=== PATIENT | female | born 1950 | race Caucasian/White ===

== ENCOUNTER 2018-08-16 17:46 | Emergency (ER) | payer MEDICARE, OTHER ==
--- NOTE | 2018-08-16 18:19 | EDM.PDOC ---
ED HPI GENERAL MEDICAL PROBLEM - General Chief Complaint: Cardiovascular Problem Stated Complaint: Hypertension Time Seen by Provider: 08/16/18 18:00 Source of Information: Reports: Patient History Limitations: Reports: No Limitations - History of Present Illness INITIAL COMMENTS - FREE TEXT/NARRATIVE: Patient is a 68-year-old female was home today took her medications as she normally does but noted that her blood pressure was elevated but she called clinic in the clinic and told to come in for evaluation this time her blood pressure was elevated we went ahead and evaluated her and decided to treat her Onset: Today Duration: Hour(s):, Constant Location: Reports: Generalized Quality: Reports: Ache Severity: Mild Improves with: Reports: Medication Worsens with: Reports: None Context: Reports: Other (Hypertension) Treatments 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 Medication(s) - Related Data Allergies Allergy/AdvReac Type Severity Reaction Status Date / Time Penicillins Allergy Intermediate Hives Verified 08/16/18 18:33 Home Meds: Home Meds Cholecalciferol (Vitamin D3) [Vitamin D3] 1,000 units PO DAILY 07/03/14 [History ] Modafinil [Provigil] 200 mg PO DAILY 07/03/14 [History] Gabapentin [Neurontin] 300 mg PO BID@08,20 03/05/15 [History] Levothyroxine [Synthroid] 50 mcg PO BEDTIME 03/05/15 [History] Multivitamins [Tab-A-Mckay] 1 tab PO DAILY 03/05/15 [History] Valsartan [Diovan] 40 mg PO DAILY 03/05/15 [History] Ibuprofen 200 mg PO Q6HR PRN #100 tablet 03/06/15 [Rx] Albuterol [Ventolin HFA] 2 puff INH Q6H PRN 08/16/18 [History] Alendronate Sodium [Fosamax] 70 mg PO WEEKLY 08/16/18 [History] Cetirizine [ZyrTEC] 10 mg PO DAILY 08/16/18 [History] Fenofibrate Nanocrystallized [Tricor] 145 mg PO DAILY 08/16/18 [History] L Gasseri/B Bifidum/B Longum [[employer] Capsule] 1 each PO DAILY [History] LORazepam 0.5 mg PO Q6HR PRN 08/16/18 [History] Pantoprazole Sodium [Protonix] 40 mg PO DAILY 08/16/18 [History] QUEtiapine [SEROquel] 200 mg PO BEDTIME 08/16/18 [History] Past Medical History HEENT History: Reports: Impaired Vision Cardiovascular History: Reports: Hypertension Respiratory History: Reports: COPD, Other (See Below) Other Respiratory History: Valley lung Gastrointestinal History: Reports: Colon Polyp, Other (See Below) Other Gastrointestinal History: Bleeding hemorrhoids Genitourinary History: Reports: None Neurological History: Reports: MS, Seizure Psychiatric History: Reports: Depression Endocrine/Metabolic History: Reports: Hypothyroidism Dermatologic History: Reports: None - Infectious Disease History Infectious Disease History: Reports: Chicken Pox - Past Surgical History HEENT Surgical History: Reports: None Cardiovascular Surgical History: Reports: None Respiratory Surgical History: Reports: None GI Surgical History: Reports: None Female Surgical History: Reports: Hysterectomy Neurological Surgical History: Reports: None ED ROS GENERAL - Review of Systems Review Of Systems: See Below Constitutional: Reports: No Symptoms HEENT: Reports: No Symptoms Respiratory: Reports: Shortness of Breath Cardiovascular: Reports: Blood Pressure Problem Endocrine: Reports: No Symptoms GI/Abdominal: Reports: No Symptoms : Reports: No Symptoms Musculoskeletal: Reports: No Symptoms Skin: Reports: No Symptoms ED EXAM, GENERAL - Physical Exam Exam: See Below Exam Limited By: No Limitations General Appearance: Alert, WD/WN, No Apparent Distress Ears: Normal External Exam, Normal Canal, Hearing Grossly Normal, Normal TMs Nose: Normal Inspection Throat/Mouth: Normal Inspection Head: Atraumatic, Normocephalic Neck: Normal Inspection, Supple, Non-Tender, Full Range of Motion Respiratory/Chest: Chest Non-Tender, Decreased Breath Sounds Cardiovascular: Normal Peripheral Pulses, Regular Rate, Rhythm, No Edema, No Gallop, No JVD, No Murmur, No Rub GI/Abdominal: Normal Bowel Sounds, Soft, Non-Tender, No Organomegaly, No Distention, No Abnormal Bruit, No Mass (Female) Exam: Normal External Exam, Normal Speculum Exam, Normal Bimanual Exam Rectal (Female) Exam: Deferred Back Exam: Decreased Range of Motion Extremities: Normal Inspection, Normal Range of Motion, Non-Tender, Normal Capillary Refill, No Pedal Edema Neurological: Alert, Oriented, CN II-XII Intact, Normal Cognition, Normal Gait, Normal Reflexes, No Motor/Sensory Deficits Psychiatric: Normal Affect, Normal Mood, Anxious Skin Exam: Warm, Dry, Intact, Normal Color, No Rash Course - Vital Signs Last Recorded V/S: Last Vital Signs Temp 98.4 F 08/16/18 17:50 Pulse 86 08/16/18 17:50 Resp 16 08/16/18 17:50 BP 157/103 H 08/16/18 18:16 Pulse Ox 93 L 08/16/18 17:50 - Orders/Labs/Meds Meds: Medications Discontinued Medications Generic Name Dose Route Start Last Admin Trade Name Ole PRN Reason Stop Dose Admin Valsartan 40 mg 08/16/18 18:08 08/16/18 18:16 Diovan PO 08/16/18 18:09 40 mg ONETIME ONE Administration Departure - Departure Time of Disposition: 18:53 Disposition: Home, Self-Care 01 Condition: Fair Clinical Impression: Hypertensive heart disease Referrals: Shweta Chavez PA-C [Primary Care Provider] - Forms: ED Department Discharge Care Plan Goals: Patient will be sent home she is to take a whole Dilantin 80 mg in the morning and recheck her blood pressure couple times a day is stable will just continue doing the Dilantin area 80 if not we will reevaluate her blood pressure medications and adjust follow-up with primary
[2018-08-16 19:11] VITALS: BP 153/83
== END 2018-08-16 19:08 | disposition home or self-care (01) ==
LOC: LL.ED 17:46
DX: I11.9 Hypertensive heart disease without heart failure (principal); J44.9 Chronic obstructive pulmonary disease, unspecified; E03.9 Hypothyroidism, unspecified; F32.9 Major depressive disorder, single episode, unspecified; Z79.899 Other long term (current) drug therapy; Z88.0 Allergy status to penicillin
CPT/HCPCS: 99283; A9270

== ENCOUNTER → 2019-01-22 | Outpatient (CLI) | payer MEDICARE, OTHER ==
[2019-01-22 10:56] LABS: CHLORIDE,CL 100 mmol/L (98-107); SODIUM,NA 142 mmol/L (136-145)
== END ==
LOC: LL.LAB 10:17
PROVIDERS: ATTEND Physician Assistant
DX: R06.09 Other forms of dyspnea (principal); R09.02 Hypoxemia; D64.9 Anemia, unspecified; M79.661 Pain in right lower leg; M79.662 Pain in left lower leg
CPT/HCPCS: 36415; 71046; 80053; 84484; 85025; 85379; 93970

== ENCOUNTER → 2019-01-23 | Outpatient (CLI) | payer MEDICARE, OTHER ==
[~2019-01-23] MED LIST: Iopamidol 755 Mg/ML 100 ML Bottle IVPUSH ONE; Sodium Chloride 0.9% 10 ML Syringe FLUSH ONE
== END ==
LOC: LL.CT 12:51
PROVIDERS: ATTEND Physician Assistant
DX: R07.9 Chest pain, unspecified (principal); R06.00 Dyspnea, unspecified; R09.02 Hypoxemia; M79.662 Pain in left lower leg; M79.661 Pain in right lower leg; Z91.89 Other specified personal risk factors, not elsewhere classified
CPT/HCPCS: 71275; Q9967

== ENCOUNTER 2019-03-09 15:42 | Emergency (ER) | payer MEDICARE, OTHER ==
[2019-03-09] MEDS: cefTRIAXone 1 GM in Sodium Chloride 0.9% 100 ML IV ONE (16:29)
[2019-03-09] MEDS: Albuterol/Ipratropium 3.0-0.5 MG/3 ML Neb Soln NEB ONE ×2 (16:29→17:01)
[2019-03-09] MEDS: methylPREDNISolone Sodium Succinate 125 MG/2 ML SDV IVPUSH ONE (16:30)
[2019-03-09 16:32] LABS: CHLORIDE,CL 101 mmol/L (98-107); SODIUM,NA 141 mmol/L (136-145)
[2019-03-09] MEDS ORDERED: Sodium Chloride 0.9% 10 ML Syringe FLUSH PRN (16:51)
--- NOTE | 2019-03-09 17:29 | EDM.PDOC ---
ED HPI GENERAL MEDICAL PROBLEM - General Chief Complaint: Respiratory Problem Stated Complaint: shortness of breath Time Seen by Provider: 03/09/19 15:56 Source of Information: Reports: Patient History Limitations: Reports: No Limitations - History of Present Illness INITIAL COMMENTS - FREE TEXT/NARRATIVE: Increasing SOB over past week No fever Intermittent cough No chest pain No N /V/D Has hx/o severe COPD Onset: Gradual Duration: Day(s): Location: Reports: Chest Severity: Moderate Worsens with: Reports: Breathing Associated Symptoms: Reports: Shortness of Breath - Related Data Allergies Allergy/AdvReac Type Severity Reaction Status Date / Time Penicillins Allergy Intermediate Hives Verified 03/09/19 15:44 Home Meds: Home Meds Cholecalciferol (Vitamin D3) [Vitamin D3] 1,000 units PO DAILY 07/03/14 [History ] Modafinil [Provigil] 200 mg PO DAILY 07/03/14 [History] Gabapentin [Neurontin] 300 mg PO BID@,03/05/15 [History] Levothyroxine [Synthroid] 50 mcg PO BEDTIME 03/05/15 [History] Multivitamins [Tab-A-Mckay] 1 tab PO DAILY 03/05/15 [History] Valsartan [Diovan] 40 mg PO DAILY 03/05/15 [History] Ibuprofen 200 mg PO Q6HR PRN #100 tablet 03/06/15 [Rx] Albuterol [Ventolin HFA] 2 puff INH Q6H PRN 08/16/18 [History] Alendronate Sodium [Fosamax] 70 mg PO WEEKLY 08/16/18 [History] Cetirizine [ZyrTEC] 10 mg PO DAILY 08/16/18 [History] Fenofibrate Nanocrystallized [Tricor] 145 mg PO DAILY 08/16/18 [History] L Gasseri/B Bifidum/B Longum [[employer] Health Capsule] 1 each PO DAILY [History] LORazepam 0.5 mg PO Q6HR PRN 08/16/18 [History] Pantoprazole Sodium [Protonix] 40 mg PO DAILY 08/16/18 [History] QUEtiapine [SEROquel] 200 mg PO BEDTIME 08/16/18 [History] Past Medical History HEENT History: Reports: Impaired Vision Cardiovascular History: Reports: Hypertension Respiratory History: Reports: COPD, Other (See Below) Other Respiratory History: Valley lung Gastrointestinal History: Reports: Colon Polyp, Other (See Below) Other Gastrointestinal History: Bleeding hemorrhoids Genitourinary History: Reports: None Neurological History: Reports: MS, Seizure Psychiatric History: Reports: Depression Endocrine/Metabolic History: Reports: Hypothyroidism Dermatologic History: Reports: None - Infectious Disease History Infectious Disease History: Reports: Chicken Pox - Past Surgical History HEENT Surgical History: Reports: None Cardiovascular Surgical History: Reports: None Respiratory Surgical History: Reports: None GI Surgical History: Reports: None Female Surgical History: Reports: Hysterectomy Neurological Surgical History: Reports: None Social & Family History - Tobacco Use Smoking Status *Q: Former Smoker Used Tobacco, but Quit: Yes Month/Year Tobacco Last Used: 12/2015 - Caffeine Use Caffeine Use: Reports: Coffee - Recreational Drug Use Recreational Drug Use: No ED ROS GENERAL - Review of Systems Review Of Systems: See Below HEENT: Reports: No Symptoms Respiratory: Reports: Shortness of Breath, Cough Cardiovascular: Reports: No Symptoms GI/Abdominal: Reports: No Symptoms ED EXAM, GENERAL - Physical Exam Exam: See Below Exam Limited By: No Limitations General Appearance: Moderate Distress Nose: Clear Rhinorrhea Throat/Mouth: Normal Oropharynx Respiratory/Chest: Decreased Breath Sounds, Crackles, Wheezing Cardiovascular: Regular Rate, Rhythm GI/Abdominal: Non-Tender Course - Vital Signs Last Recorded V/S: Last Vital Signs Temp 36.2 C 03/09/19 15:44 Pulse 90 03/09/19 16:07 Resp 24 H 03/09/19 16:51 BP 130/60 03/09/19 16:51 Pulse Ox 95 03/09/19 16:51 - Orders/Labs/Meds Orders: Active Orders 24 hr Category Date Time Status Peripheral IV Care [RC] . DIRECTED Care 03/09/19 16:51 Active RT Aerosol Therapy [RC] ASDIRECTED Care 03/09/19 15:58 Active RT Aerosol Therapy [RC] ASDIRECTED Care 03/09/19 16:59 Active Chest 1V Frontal [CR] Stat Exams 03/09/19 15:57 Taken Sodium Chloride 0.9% [Saline Flush] Med 03/09/19 16:51 Active 10 ml FLUSH ASDIRECTED PRN Peripheral IV Insertion Adult [OM.PC] Routine Oth 03/09/19 16:51 Ordered Medication Orders Sodium Chloride (Saline Flush) 10 ml FLUSH ASDIRECTED PRN PRN Reason: Keep Vein Open Labs: Laboratory Tests 03/09/19 03/09/19 Range/Units 16:07 16:07 WBC 6.0 (4.0-10.2) K/uL RBC 4.49 (3.77-5.09) M/uL Hgb 13.0 (11.7-15.5) g/dL Hct 40.6 (34.0-46.0) % MCV 90.4 (84.0-98.0) fL MCH 29.0 (28.2-33.3) pg MCHC 32.0 (31.7-36.0) g/dL RDW 14.9 H (11.2-14.1) % Plt Count 288 (150-350) K/uL Neut % (Auto) 82.1 H (45.0-80.0) % Lymph % (Auto) 10.9 (10.0-50.0) % [place] % (Auto) 6.8 (2.0-14.0) % Eos % (Auto) 0.0 (0.0-5.0) % Baso % (Auto) 0.2 (0.0-2.0) % Neut # (Auto) 4.96 (1.40-7.00) K/uL Lymph # (Auto) 0.66 (0.50-3.50) K/uL [place] # (Auto) 0.41 (0.00-1.00) K/uL Eos # (Auto) 0.00 (0.00-0.50) K/uL Baso # (Auto) 0.01 (0.00-0.20) K/uL Sodium 141 (136-145) mmol/L Potassium 3.8 (3.5-5.1) mmol/L Chloride 101 (98-107) mmol/L Carbon Dioxide 31.3 (21.0-32.0) mmol/L BUN 22 H (7-18) mg/dL Creatinine 0.62 (0.51-1.17) mg/dL Est Cr Clr Drug Dosing 82.10 mL/min Estimated GFR (MDRD) > 60 mL/min Glucose 116 H (74-106) mg/dL Calcium 9.5 (8.5-10.1) mg/dL Total Bilirubin 0.6 (0.2-1.0) mg/dL AST 56 H (15-37) U/L ALT 43 (12-78) U/L Alkaline Phosphatase 72 (46-116) IU/L Total Protein 8.1 (6.4-8.2) g/dL Albumin 3.9 (3.4-5.0) g/dL Meds: Medications Generic Name Dose Route Start Last Admin Trade Name Freq PRN Reason Stop Dose Admin Sodium Chloride 10 ml 03/09/19 16:51 Saline Flush FLUSH ASDIRECTED PRN Keep Vein Open Discontinued Medications Generic Name Dose Route Start Last Admin Trade Name Freq PRN Reason Stop Dose Admin Albuterol/Ipratropium 3 ml 03/09/19 15:57 03/09/19 16:29 Duoneb 3.0-0.5 Mg/3 Ml NEB 03/09/19 15:58 3 ml ONETIME ONE Administration Albuterol/Ipratropium 3 ml 03/09/19 16:59 03/09/19 17:01 Duoneb 3.0-0.5 Mg/3 Ml NEB 03/09/19 17:00 3 ml ONETIME ONE Administration Ceftriaxone Sodium 1 gm/ 100 mls @ 200 mls/hr 03/09/19 15:58 03/09/19 16:29 Sodium Chloride IV 03/09/19 16:27 200 mls/hr ONETIME ONE Administration Methylprednisolone Sodium Succinate 125 mg 03/09/19 15:58 03/09/19 16:30 Solu-Medrol IVPUSH 03/09/19 15:59 125 mg ONETIME ONE Administration - Re-Assessments/Exams Free Text/Narrative Re-Assessment/Exam: 03/09/19 17:27 See lab and CXR Pt given Duo-neb X 2 and Solu-medrol 125 mg IV Pt much improved RA sats 92% Pt desires to be d/c'd home Departure - Departure Time of Disposition: 17:30 Disposition: Home, Self-Care 01 Clinical Impression: COPD exacerbation - Discharge Information *PRESCRIPTION DRUG MONITORING PROGRAM REVIEWED*: Not Applicable *COPY OF PRESCRIPTION DRUG MONITORING REPORT IN PATIENT [place]: Not Applicable Instructions: Chronic Obstructive Pulmonary Disease Exacerbation Referrals: Shweta Chavez PA-C [Primary Care Provider] - Additional Instructions: Use home nebulizer and inhaler as prescribed Sepsis Event Note - Evaluation Sepsis Screening Result: No Definite Risk - Focused Exam Vital Signs: Vital Signs Temp Pulse Resp BP Pulse Ox 03/09/19 16:51 24 H 130/60 95 03/09/19 16:36 26 H 117/65 95 03/09/19 16:21 22 H 104/71 97 03/09/19 16:07 90 23 H 126/76 98 03/09/19 15:51 24 H 143/72 H 98 03/09/19 15:44 36.2 C 90 30 H 134/107 H 81 L Date Exam was Performed: 03/09/19 Time Exam was Performed: 17:24 - My Orders Last 24 Hours: My Active Orders 03/09/19 15:57 Chest 1V Frontal [CR] Stat 03/09/19 15:58 RT Aerosol Therapy [RC] ASDIRECTED 03/09/19 16:51 Peripheral IV Care [RC] . DIRECTED Sodium Chloride 0.9% [Saline Flush] 10 ml FLUSH ASDIRECTED PRN Peripheral IV Insertion Adult [OM.PC] Routine 03/09/19 16:59 RT Aerosol Therapy [RC] ASDIRECTED - Assessment/Plan Last 24 Hours: My Active Orders 03/09/19 15:57 Chest 1V Frontal [CR] Stat 03/09/19 15:58 RT Aerosol Therapy [RC] ASDIRECTED 03/09/19 16:51 Peripheral IV Care [RC] . DIRECTED Sodium Chloride 0.9% [Saline Flush] 10 ml FLUSH ASDIRECTED PRN Peripheral IV Insertion Adult [OM.PC] Routine 03/09/19 16:59 RT Aerosol Therapy [RC] ASDIRECTED
[2019-03-09 18:06] VITALS: PULSE 89
[2019-03-09 18:07] VITALS: BP 132/73
== END 2019-03-09 18:15 | disposition home or self-care (01) ==
LOC: LL.ED 15:42
DX: J44.1 Chronic obstructive pulmonary disease with (acute) exacerbation (principal); I10 Essential (primary) hypertension; E03.9 Hypothyroidism, unspecified; F32.9 Major depressive disorder, single episode, unspecified; Z79.899 Other long term (current) drug therapy; Z90.710 Acquired absence of both cervix and uterus; Z87.891 Personal history of nicotine dependence; Z88.0 Allergy status to penicillin
CPT/HCPCS: 36415; 71045; 80053; 85025; 94640; 96365; 96375; 99284; 99284-25; J0696; J2930; J7050; J7620-GY

== ENCOUNTER 2024-08-15 09:26 | Emergency (ER) | payer MEDICARE, OTHER ==
[2024-08-15 09:54] LABS: BASOPHILS ABSOLUTE AUTO 0.02 K/uL (0.00-0.20); BASOPHILS PERCENT AUTO 0.2 % (0.0-2.0); EOSINOPHILS ABSOLUTE AUTO 0.08 K/uL (0.00-0.50); HEMATOCRIT 39.2 % (34.0-46.0); HEMOGLOBIN 12.7 g/dL (11.7-15.5); IMMATURE GRAN ABSOLUTE AUTO 0.03 10^3/uL (0.00-0.04); IMMATURE GRAN PERCENT AUTO 0.4 % (0.0-0.4); LYMPHOCYTES ABSOLUTE AUTO 1.48 K/uL (0.50-3.50); MEAN CORPUSCULAR HEMOGLOBIN 29.1 pg (28.2-33.3); MEAN CORPUSCULAR HGB CONC 32.4 g/dL (31.7-36.0); MEAN CORPUSCULAR VOLUME 89.9 fL (84.0-98.0); MONOCYTES ABSOLUTE AUTO 0.55 K/uL (0.00-1.00); MONOCYTES PERCENT AUTO 6.7 % (2.0-14.0); NEUTROPHILS ABSOLUTE AUTO 6.06 K/uL (1.40-7.00); NEUTROPHILS PERCENT AUTO 73.7 % (45.0-80.0); PLATELET COUNT,PLT 480 K/uL (150-350); RED BLOOD CELL COUNT 4.36 M/uL (3.77-5.09); RED CELL DISTRIBUTION WIDTH 14.4 % (11.2-14.1); WHITE BLOOD CELL COUNT,WBC 8.2 K/uL (4.0-10.2)
[2024-08-15] MEDS: methylPREDNISolone Sodium Succinate 125 MG/2 ML SDV IVPUSH ONE (09:56)
[2024-08-15] MEDS: Furosemide 40 MG/4 ML VIAL IVPUSH ONE (09:56)
[2024-08-15] MEDS: Sodium Chloride 0.9% 10 ML Syringe FLUSH PRN (09:57)
[2024-08-15] MEDS: Albuterol/Ipratropium 3.0-0.5 MG/3 ML Neb Soln NEB ONE ×3 (09:57)
[2024-08-15 10:22] LABS: INR 1.1 (0.9-1.1); PROTHROMBIN TIME 11.1 SEC (9.0-11.1)
[2024-08-15 10:30] LABS: ALANINE AMINOTRANSFERASE,ALT 13 U/L (12-78); ALBUMIN 3.7 g/dL (3.4-5.0); ALKALINE PHOSPHATASE 69 IU/L (46-116); ASPARTATE AMNIOTRANSFERASE,AST 18 U/L (15-37); BILIRUBIN TOTAL 0.4 mg/dL (0.2-1.0); BLOOD UREA NITROGEN,BUN 34 mg/dL (7-18); CALCIUM 9.8 mg/dL (8.5-10.1); CARBON DIOXIDE,CO2 27.8 mmol/L (21.0-32.0); CHLORIDE,CL 103 mmol/L (98-107); CREATININE 1.24 mg/dL (0.51-1.17); GLUCOSE RANDOM 160 mg/dL (70-99); MAGNESIUM 1.7 mg/dL (1.8-2.4); POTASSIUM,K 3.3 mmol/L (3.5-5.1); PRO B-TYPE NATRIUR PEPT,BNPPRO 195 pg/mL (0-125); PROTEIN TOTAL,TP 8.1 g/dL (6.4-8.2); SODIUM,NA 142 mmol/L (136-145)
[2024-08-15 10:31] LABS: ANION GAP 14.5 meq/L (7-15); ESTIMATED GFR 45 mL/min (>=60)
[2024-08-15] MEDS: Potassium Bicarbonate/Cit Ac 20 MEQ Effervescent Tab PO ONE (11:49)
[2024-08-15 12:25] VITALS: BP 138/98
[2024-08-16 12:06] VITALS: PULSE 107
== END 2024-08-15 12:15 | disposition home or self-care (01) ==
LOC: LL.ED 09:26
DX: J43.1 Panlobular emphysema (principal); I10 Essential (primary) hypertension; E03.9 Hypothyroidism, unspecified; Z88.0 Allergy status to penicillin; Z79.890 Hormone replacement therapy; Z79.899 Other long term (current) drug therapy; Z90.710 Acquired absence of both cervix and uterus; Z87.891 Personal history of nicotine dependence
CPT/HCPCS: 36415; 71046; 80053; 83735; 83880; 84484; 85025; 85610; 93005; 93010; 94640; 96374; 96375; 99284; 99285-25; A9270-GY; J1938; J2919